=== PATIENT | female | born 2000 | race Caucasian/White ===

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

== ENCOUNTER 2023-08-16 14:54 | Emergency (ER) | payer OTHER, SELFPAY ==
--- NOTE | 2023-08-16 15:04 | ED.URI ---
HPI - URI/Sore Throat General Chief Complaint: Upper Respiratory Infection Stated Complaint: Headache,Bilateral Ear Irritation,Loss of Voice Source: patient and RN notes reviewed History of Present Illness HPI Narrative: 22 yo F presents to urgent care with complaints of a BUENO x 5 days. Pt states on Saturday, her BUENO started and she had a fever for just a couple hours that has not returned. States her BUENO is intermittent and now down to a 3/10 on the pain scale which is much improved since the start of it. Pt is also reporting her lost her voice this week and she has had bilateral ear irritation. Pt states her mom put sweet oil in her ears and got lots of stuff out. Pt denies any N/V/D, congestion, posterior neck pain, chest pain, SOB, abdominal pain, or sore throat. Pt has been taking ibuprofen and Tylenol at home with some relief. Related Data Home Medications Medication Instructions Recorded Confirmed No Home Medications 08/16/23 08/16/23 Allergies Allergy/AdvReac Type Severity Reaction Status Date / Time No Known Allergies Allergy Mild Verified 08/16/23 15:11 Review of Systems Review of Systems: Pertinent positives and pertinent negatives per HPI. [facility] Social History Social History Gender identity (if verbalized by the patient): Female Comments At the time of my signature, I reviewed and agree with the nursing past medical, surgical, social, and family history. There is no relevant family history pertinent to the patient complaint. Exam Narrative: GENERAL: This is a well-nourished, well-developed patient, in no apparent distress. HEAD: normocephalic, atraumatic. EYES: Sclera clear/white. Vision is grossly intact. EARS: External ears normal, auditory canals clear and without drainage, TMs normal without perforation. Hearing grossly intact. NOSE: External nose normal with no obvious nasal discharge, nares without redness, no rhinorrhea. THROAT: Mucous membranes moist, posterior pharynx clear. Hoarse voice NECK: Neck supple, non-tender without lymphadenopathy, masses or thyromegaly. CARDIOVASCULAR: Regular rate and rhythm without murmurs, gallops, or rubs. RESPIRATORY: Clear to auscultation. Breath sounds equal bilaterally. No wheezes, rales, or rhonchi. SKIN: warm, intact with no suspicious lesions or rash, good texture and turgor. NEURO: awake, alert, and oriented to person, place and time. There were no obvious focal neurologic abnormalities. EXTREMITIES: No clubbing, cyanosis, or edema. No joint tenderness, effusion, or edema noted. BACK: Nontender without deformity or crepitus. No flank tenderness. Course Course Level of Care: Express Care Visit Vital Signs Vital signs: Vital Signs Temperature 97.9 F 08/16/23 15:06 Pulse Rate 103 H 08/16/23 15:06 Respiratory Rate 16 08/16/23 15:06 Blood Pressure 128/83 08/16/23 15:06 Pulse Oximetry 100 08/16/23 15:06 Oxygen Delivery Room Air 08/16/23 15:06 Temperature 97.9 F 08/16/23 15:06 Pulse Rate 103 H 08/16/23 15:06 Respiratory Rate 16 08/16/23 15:06 Blood Pressure 128/83 08/16/23 15:06 Pulse Oximetry 100 08/16/23 15:06 Oxygen Delivery Room Air 08/16/23 15:06 reviewed MDM - URI/Sore Throat MDM Narrative Medical decision making narrative: Viral illness may last between 7-21 days; antibiotics do not cure viral illness and are NOT recommended at this time. Also, recommend symptomatic treatment includes: rest, fluids, and increase humidity of the air at home. Recommend Acetaminophen as directed on the bottle to reduce fever, pain, headache. Please schedule a follow-up visit with your personal physician for further evaluation and treatment within 3-5days. If your symptoms persist, change or worsen significantly before you can contact your personal physician then please, without delay, go to the emergency department for further evaluation. Differential Diagnosis Differential diagnosis: Likely upper resp
[2023-08-16 15:06] VITALS: BP 128/83; PULSE 103; RESP 16; TEMP 36.6; O2SAT 100
== END 2023-08-16 15:30 | disposition home or self-care (01) ==
PROVIDERS: Emergency Provider Nurse Practitioner Family
DX: B34.9 Viral infection, unspecified (principal); J04.0 Acute laryngitis
CPT/HCPCS: 99211; G0463

== ENCOUNTER 2024-06-03 16:42 | Emergency (ER) | payer OTHER, SELFPAY ==
[2024-06-03 16:50] VITALS: BP 113/72; PULSE 83; RESP 16; TEMP 36.9; O2SAT 97
--- NOTE | 2024-06-03 17:06 | ED.GENADULT ---
HPI - General Adult General Chief complaint: Urogenital-Female Stated complaint: Uti Symptoms Time Seen by Provider: 06/03/24 17:06 Source: patient, RN notes reviewed and old records reviewed Mode of arrival: ambulatory Limitations: no limitations History of Present Illness HPI narrative: 23-year-old female to Express Care for complaint of burning with urination and urinary urgency for 2 days. Patient reports UTI 7 months ago, states symptoms are very similar. LMP May 09. Patient denies abdominal pain, flank pain, back pain, hematuria, nausea vomiting, bowel changes, fever, allergies. Patient states she has been treating at home with AZO for 3 days. Patient able to tolerate fluids by mouth. Patient resting comfortably in exam room in no acute distress. Related Data Allergies Allergy/AdvReac Type Severity Reaction Status Date / Time No Known Allergies Allergy Mild Verified 06/03/24 16:56 Review of Systems Review of Systems: All systems reviewed & are unremarkable except as noted in HPI and below Constitutional: Constitutional: Reports no additional constitutional complaints Eyes: Eyes: Reports no additional eye complaints ENT: Reports system reviewed and no additional complaints, except as documented Cardiovascular: Cardiovascular: Reports no additional cardiovascular complaints, Denies chest pain and Denies dyspnea Respiratory: Respiratory: Reports no additional respiratory complaints, Denies cough and Denies dyspnea Genitourinary: Genitourinary: Reports as per HPI, Reports dysuria, Denies flank pain and Reports urinary urgency Musculoskeletal: Musculoskeletal: Reports no additional musculoskeletal complaints Neurologic: Reports system reviewed and no additional complaints, except as documented Psychiatric: Psychiatric: Reports no additional psychiatric complaints PMFSH Social History Social History Gender identity (if verbalized by the patient): Female Comments At the time of my signature, I reviewed and agree with the nursing past medical, surgical, social, and family history. There is no relevant family history pertinent to the patient complaint. Exam Const: General: cooperative, healthy appearing, comfortable, no acute distress, alert and well nourished Nutritional Appearance: well nourished Orientation/consciousness: patient oriented x3 Limitations: no limitations HENMT: Head: normal to inspection Ears: external ears normal Face/Nose/Sinus: Normal external nose present, Normal nares present, normal facial exam, No erythema and No edema Face and sinus: normal facial exam, no erythema and no edema Mouth: Yes Normal oral and palatal mucosa present Eyes: General: appearance normal, both eyes and all related structures Neck: Neck: normal visual inspection, full ROM and no meningeal signs Chest: Chest palpation & inspection: normal inspection of the chest Resp: Effort & Inspection: normal respiratory effort and able to speak in complete sentences Cardio: Jugular venous distension: no JVD Rate: regular rate Rhythm: regular rhythm : General: Yes no CVA tenderness Back/Spine/Pelvis: Cervical Spine: cervical ROM normal Skin: General skin exam: normal color, no rashes or lesions noted and turgor normal Neuro: General: patient oriented x3, gait normal, moves all extremities and no meningeal signs Speech: normal speech Gait exam (Neuro): Normal gait present Extrem: General: normal to inspection, full ROM and capillary refill normal Psych: Appearance: grossly normal and well kempt Course Course Emergency Course: Some parts of this dictation were generated by voice recognition software and may contain typographical and/or grammatical inaccuracies. Level of Care: Express Care Visit Vital Signs Vital signs: Vital Signs Temperature 36.9 C 06/03/24 16:50 Pulse Rate 83 06/03/24 16:50 Respiratory Rate 16 06/03/24 16
[2024-06-03 17:07] LABS: EDUAAPPEAR Clear; EDUABILI Negative (Negative); EDUABLOOD Trace (Negative); EDUACOLOR1 Yellow; EDUAGLUCOSE Negative (Negative); EDUAKETONE Negative (Negative); EDUALEUKO Negative (Negative); EDUANITRATE Negative (Negative); EDUAPH 6.5; EDUAPROTEIN Negative (Negative); EDUAUROBILI 0.2
== END 2024-06-03 17:15 | disposition home or self-care (01) ==
PROVIDERS: Emergency Provider Nurse Practitioner Family
DX: R35.0 Frequency of micturition (principal)
CPT/HCPCS: 81003; 87077; 87086; 87088; 87186; 99213; G0463